=== PATIENT | female | born 1985 | race Caucasian/White ===

== ENCOUNTER 2022-05-03 11:53 | Emergency (ER) | payer MEDICAID ==
[~2022-05-03] VITALS: Ht 157.5 cm; Wt 54.4 kg
--- NOTE | 2022-05-03 12:10 | NUR ---
DANIEL C/O cough and fever x 2 days. AMBULATORY, PLACED ON BED. SEEN AND EXAMINED BY
[2022-05-03] MEDS ORDERED: ACETAMINOPHEN ES 500 MG TABLET ONE (12:20)
[2022-05-03] MEDS ORDERED: GUAIFENESIN/D-METHORPHAN HB 5 ML UDC ONE (12:20)
--- NOTE | 2022-05-03 12:20 | NUR ---
URINE SAMPLE SENT TO LAB
--- NOTE | 2022-05-03 12:22 | NUR ---
COVID AND FLU SWABS DONE AND SENT TO LAB
[2022-05-03] MEDS: ACETAMINOPHEN ES 500 MG TABLET PO ONE (12:24)
[2022-05-03] MEDS: GUAIFENESIN/D-METHORPHAN HB 5 ML UDC PO ONE (12:25)
[2022-05-03] MEDS: IV NS 0.9% 1,000 ML IV ONE (12:29)
--- NOTE | 2022-05-03 12:32 | NUR ---
X-RAY TECH AT BEDSIDE
[2022-05-03 12:43] LABS: BILIRUBIN,URINE NEGATIVE (NEGATIVE); COLOR,URINE ORANGE (YELLOW); LEUKOCYTE ESTERASE ,URINE NEGATIVE (NEGATIVE); NITRITE, URINE NEGATIVE (NEGATIVE); PROTEIN,URINE 30 mg/dl (NEGATIVE); UGLUCOSE NEGATIVE (NEGATIVE); UROBILINOGEN,URINE >=8.0 EU/dL (0.2)
[2022-05-03] MEDS ORDERED: LEVO750T46 PO (14:21)
[2022-05-03 14:38] VITALS: BP 115/60
--- NOTE | 2022-05-03 14:38 | NUR ---
Patient discharged to home in stable condition. Written and verbal after care instructions given. Patient verbalizes understanding of instruction.IV removed. Catheter intact and site benign. Pressure and 4x4 applied to site. No bleeding noted.
== END 2022-05-03 14:39 | disposition home or self-care (01) ==
LOC: ER 11:55
DX: J18.9 Pneumonia, unspecified organism (principal); Z20.822 Contact with and (suspected) exposure to COVID-19
CPT/HCPCS: 99284; 96360; 71045; 87426; 87804; 81003; J7030; C9803